=== PATIENT | male | born 1980 | race Hispanic/Latino ===

== ENCOUNTER 2024-11-16 16:40 | Emergency (ER) | payer BC, OTHER ==
[~2024-11-16] VITALS: Ht 172.7 cm; Wt 106.6 kg
--- NOTE | 2024-11-16 17:01 | ERN ---
ED Note History of Present Illness Stated Complaint: BLOOD URINE Chief Complaint: Blood in Urine: Time Seen by MD: 16:57 Time Seen by Midlevel: 16:57 Dictation: Mr. Mcrae 44-year-old male with history of obesity, anxiety, and kidney stones. He states that he has been experiencing intermittent sharp right flank pain for the past two weeks. He states that two days ago it got worse. This morning he states he noted his urine was clear/yellow but when he urinated this afternoon it was dark brown. He states his flank pain increased and he became nauseated with anxiety prompting him to come to the hospital. He states that he has had kidney stones since he was a child with last episode three years ago. He states he was seen a urologist in [place] but they have since left. He denies fever, chills, shortness of breath, cough, chest pain, palpitations, edema, abdominal pain, vomiting, hematemesis, constipation, diarrhea, melena, hematochezia, headache, dizziness, or focal weakness/paresthesia Allergies: Coded Allergies: No Known Drug Allergies (Unverified Allergy, Unknown, 11/16/24) Past Medical History Past Medical History: Anxiety, Diverticulitis, Kidney Stone Surgical History: Other Surgical History Other: abdominal lap PSYCH History: anxiety Social History: Negative, Lives with family RN Note Reviewed/Agreed w/PFSH: Yes Review of System Dictation REVIEW OF SYSTEMS: CONSTITUTIONAL: Patient denies fevers, chills, sweats and weight changes. EYES: Patient denies any visual symptoms. EARS, NOSE, AND THROAT: No difficulties with hearing. No symptoms of rhinitis or sore throat. CARDIOVASCULAR: Patient denies chest pains, palpitations, orthopnea and paroxysmal nocturnal dyspnea. States "I always have high blood pressure readings whenever I go to the doctor or the hospital" RESPIRATORY: No dyspnea on exertion, no wheezing or cough. GI: No vomiting, diarrhea, constipation, abdominal pain, hematochezia or melena. Reports nausea. : No urinary hesitancy or dribbling. No nocturia or urinary frequency. No abnormal urethral discharge. Reports sharp intermittent right flank pain x2 weeks; worse over the past 48 hours. This afternoon noted urine dark c olored/bloody. He reports history of kidney stones since childhood. Reports last stone was approximately 3 years ago. MUSCULOSKELETAL: No myalgias or arthralgias. NEUROLOGIC: No chronic headaches, no seizures. Patient denies numbness, tingling or weakness. PSYCHIATRIC: Patient denies problems with mood disturbance. Reports increased anxiety. ENDOCRINE: No excessive urination or excessive thirst. States he has had elevated blood glucose readings in the past. DERMATOLOGIC: Patient denies any rashes or skin changes. Initial Vital Sign VS Vital Signs Date Time Temp Pulse Resp B/P (MAP) Pulse Ox O2 Delivery O2 Flow Rate FiO2 11/16/24 16:44 96 18 250/142 97 Room Air 5.0 11/16/24 16:46 21 11/16/24 17:01 99.0 Physical Exam Dictation Vital signs: Reviewed. Afebrile Constitutional: Anxious, pacing Head/Face: Normocephalic, atraumatic. Eyes: Periorbital areas with no swelling, redness, or edema. Lids and lashes are normal. Conjunctival injection is absent. Sclera anicteric. Pupils equal, round, reactive to light. ENT: Pinnas intact and no signs of trauma or erythema. Ear canals clear and no discharge. TMs no erythema. No nasal discharge or bleeding noted. Oropharynx with no exudate, redness, swelling, masses, exudates, or evidence of obstruction. Uvula midline. Mucous membranes moist. Neck: Trachea midline, no masses palpated, and no cervical lymphadenopathy. No swelling. Supple, full range of motion. Chest/Axilla: No tenderness, no crepitus, no paradoxical movement, no retractions. Cardiovascular: Regular rate, regular rhythm, no murmur, no gallops. Symmetric pulses. No peripheral edema. Hypertensive. Respiratory: Respirations even and unlabored. Lung sounds clear; no wheezes, rales or rhonchi. Room air SpO2 98% Gastrointestinal: Obese. No distention is appreciated. Bowel sounds are normal. No mass or organomegaly . There is no tenderness. No rebound. No rigidity. No voluntary or involuntary guarding. No Babin's sign. : Urine is brown in color. Negative CVA tenderness bilaterally. Neurological: Normal speech, gross motor function intact, gross sensory function intact. No focal weakness/Paresthesia. Musculoskeletal/Extremities: All extremities have full range of motion, no pain or tenderness on palpation. Symmetric pulses. Integumentary: Intact. Skin is normal color, warm and dry. Cap refill less than 3 seconds. Results (Laboratory/Radiology) Laboratory/Radiology Laboratory Tests Test 11/16/24 17:10 11/16/24 17:19 White Blood Count 13.9 K/uL (4.8-10.8) H Red Blood Count 5.44 MIL/uL (4.50-6.20) Hemoglobin 16.0 g/dL (14.0-18.0) Hematocrit 45.0 % (42-54) Mean Corpuscular Volume 82.7 fL (79-99) Mean Corpuscular Hemoglobin 29.4 pg (27.0-33.0) Mean Corpuscular Hemoglobin Concent 35.6 g/dL (32.0-36.0) Red Cell Distribution Width 12.9 % (11.0-15.5) Platelet Count 340 K/uL (130-400) Mean Platelet Volume 10.4 fL (7.5-10.5) Immature Granulocyte % (Auto) 0.5 % (0-1) Neutrophils (%) (Auto) 73.9 % (40.0-77.0) Lymphocytes (%) (Auto) 18.9 % (21.0-51.0) L Monocytes (%) (Auto) 5.7 % (3.0-13.0) Eosinophils (%) (Auto) 0.6 % (0.0-8.0) Basophils (%) (Auto) 0.4 % (0.0-5.0) Neutrophils # (Auto) 10.3 K/uL (1.8-7.7) H Lymphocytes # (Auto) 2.6 K/uL (1.0-4.8) Monocytes # (Auto) 0.8 K/uL (0.1-1.0) Eosinophils # (Auto) 0.08 K/uL (0.00-0.70) Basophils # (Auto) 0.06 K/uL (0.00-0.20) Absolute Immature Granulocyte (auto 0.07 K/uL (0-1) Nucleated Red Blood Cells 0.0 % (0.0-0.19) Sodium Level 138 mmol/L (136-145) Potassium Level 3.2 mmol/L (3.5-5.1) L Chloride Level 100 mmol/L (101-111) L Carbon Dioxide Level 28 mmol/L (21-32) Blood Urea Nitrogen 11 mg/dL (7-18) Creatinine 1.2 mg/dL (0.5-1.3) Glomerular Filtration Rate Calc 76 mL/min (>90) Random Glucose 164 mg/dL (70-105) H Total Calcium 9.1 mg/dL (8.5-10.1) Urine Color LIGHT-ORANGE (YELLOW) Urine Appearance TURBID (CLEAR) Urine pH 5.5 (5.0-8.0) Urine Specific [place] 1.022 (1.001-1.031) Urine Protein 100 mg/dL (NEGATIVE) H Urine Glucose (UA) NEGATIVE mg/dL (NEGATIVE) Urine Ketones NEGATIVE mg/dL (NEGATIVE) Urine Occult Blood LARGE (NEGATIVE) H Urine Nitrate NEGATIVE (NEGATIVE) Urine Bilirubin NEGATIVE mg/dL (NEGATIVE) Urine Urobilinogen 0.2 mg/dL (0.2-1.0) Urine Leukocyte Esterase 25 Anjelica/uL (NEGATIVE) H Urine RBC >100 /HPF (0-1) H Urine WBC 6-10 /HPF (0-1) H Urine Squamous Epithelial Cells RARE /HPF (0-2) Urine Other Crystals (Auto) 17 /HPF (None Seen) Urine Bacteria RARE /HPF (None Seen) Urine Yeast FEW /HPF (None Seen) Urine Opiates Screen NEGATIVE (NEGATIVE) Urine Barbiturates Screen NEGATIVE (NEGATIVE) Urine Phencyclidine Screen NEGATIVE (NEGATIVE) Urine Amphetamines Screen NEGATIVE (NEGATIVE) Urine Benzodiazepines Screen NEGATIVE (NEGATIVE) Urine Cocaine Screen NEGATIVE (NEGATIVE) Urine Marijuana (THC) Screen NEGATIVE (NEGATIVE) Labs Reviewed?: Yes CT Scan Comment: PATIENT: DAFNE MCRAE III MR#: [id number] : 1980 SEX: M AGE: 44 LOCATION: [facility] ORDER 22 STATUS: REG REPORT#: [id number] SERVICE 172 REASON: RIGHT FLANK PAIN. HX OF KIDENY STONES. ORDERING PHYSICIAN: KIM LOPEZ NP PROCEDURE: ABD PEL WO - CT ABDOMEN/PELVIS W/O CONTRAST EXAM: CT Abdomen and Pelvis Without IV Contrast CLINICAL HISTORY: Patient presents with right flank pain and history of kidney stones. TECHNIQUE: Axial computed tomography images of the abdomen and pelvis without intravenous contrast. CONTRAST: No IV contrast. COMPARISON: CT abdomen and pelvis dated October 06, 2016. FINDINGS: LUNG BASES: The lung bases are clear. No pleural effusions. LIVER: The liver is enlarged, measuring approximately 18 cm in craniocaudal span. GALLBLADDER AND BILE DUCTS: The gallbladder is within normal limits. No radiopaque gallstones. No biliary ductal dilatation. PANCREAS: Unremarkable. SPLEEN: Unremarkable. ADRENAL GLANDS: Unremarkable. KIDNEYS, URETERS, AND BLADDER: There is a 0.8 cm calculus in the mid calyx of the left kidney. Two calculi are present in the lower calyx of the left kidney, the larger measuring 0.6 cm. New right proximal ureteric calculus measuring 0.7 cm with upstream mild hydroureteronephrosis and minimal periureteric fat stranding. The urinary bladder is incompletely distended, limiting evaluation for possible wall thickening. Mild cystitis cannot be excluded. STOMACH AND BOWEL: Unremarkable stomach and small bowel. Colonic diverticulosis without diverticulitis. No bowel obstruction. No findings suggesting enteritis or colitis. APPENDIX: No evidence of acute appendicitis. PERITONEUM: No free fluid. No free air. LYMPH NODES: No lymphadenopathy. REPRODUCTIVE: The prostate gland and seminal vesicles are normal. VASCULATURE: No evidence of abdominal aortic aneurysm. BONES: No aggressive osseous lesion. No acute osseous pathology. IMPRESSION: Right proximal ureteric calculus measuring 0.7 cm with mild upstream hydroureteronephrosis and minimal periureteric fat stranding. Nonobstructing left renal calculi, including a 0.8 cm mid calyceal calculus and a 0.6 cm lower calyceal calculus. Hepatomegaly. Colonic diverticulosis without diverticulitis. Urinary bladder incompletely distended, limiting evaluation for wall thickening; mild cystitis cannot be excluded. /[facility] DICTATED BY: ANY CAMPOS Jr., MD DATE: 11/16/241956 ELECTRONICALLY SIGNED BY: ANY CAMPOS Jr., MD DATE: 11/16/241956 ED Course ED Course Orders Procedure Category Date Status Time Urinalysis Profile LAB 11/16/24 Complete 16:58 Cbc With Differential LAB 11/16/24 Complete 16:58 Basic Metabolic Panel LAB 11/16/24 Complete 16:58 0.9%Nacl 1000ml (Ns PHA 11/16/24 In Process 1000ml) 17:30 Ct Abdomen/Pelvis W/O CT 11/16/24 Resulted Contrast 17:21 Culture Urine MONICA 11/16/24 In Process 17:35 Ketorolac PHA 11/16/24 In Process Tromethamine 15mg/Ml 18:00 Ondansetron 4mg Inj PHA 11/16/24 In Process (Zofran 4mg Inj) 18:00 Diazepam 5 Mg/Ml 2 Ml PHA 11/16/24 In Process Syg (Valium 5 Mg/M 19:00 Diazepam 5 Mg/Ml 2 Ml PHA 11/16/24 Complete Syg (Valium 5 Mg/M 18:42 Drug Screen Urine LAB 11/16/24 Complete 19:04 Potassium Bicarb/Cit PHA 11/16/24 In Process Ac 25meq (K-Lyte Ta 19:30 Ceftriaxone 1g Vial PHA 11/16/24 In Process (Rocephine 1g Inj) 19:30 Tamsulosin Hcl PHA 11/16/24 In Process (Flomax) 19:30 Clonidine Hcl 0.2 Mg PHA 11/16/24 In Process Tablet (Catapres 0. 20:30 Current Medications Medications (Trade) Dose Ordered Sig/Edinson Route PRN Reason Start Time Stop Time Status Last Admin Dose Admin Ceftriaxone Sodium (ROCEphine 1G INJ) 1 gm ONCE IVPB 11/16/24 19:30 11/16/24 23:59 11/16/24 20:06 Clonidine HCl (CATApres 0.2 MG TAB) 0.2 mg ONCE PO 11/16/24 20:30 11/16/24 23:59 Diazepam (VALium 5 MG/ML 2 ML SYG) 5 mg ONCE IVP 11/16/24 19:00 11/16/24 23:00 11/16/24 18:42 Diazepam (VALium 5 MG/ML 2 ML SYG) 10 mg STK-MED ONCE .ROUTE 11/16/24 18:42 11/16/24 18:42 DC Ketorolac Tromethamine (toRADol) 15 mg ONCE IV 11/16/24 18:00 11/16/24 22:00 11/16/24 18:20 Ondansetron HCl (zoFRAN 4MG INJ) 4 mg ONCE IVP 11/16/24 18:00 11/16/24 22:00 11/16/24 18:20 Potassium Bicarbonate (K-Lyte Tablet Eff 25 Meq Tablet.eff) 50 meq ONCE PO 11/16/24 19:30 11/16/24 23:59 11/16/24 20:05 Sodium Chloride 1,000 ml @ 0 mls/hr Q0M IV 11/16/24 17:30 11/17/24 17:29 11/16/24 17:41 Tamsulosin HCl (FloMAX) 0.4 mg ONCE PO 11/16/24 19:30 11/16/24 23:59 11/16/24 20:08 Vital Signs Date Time Temp Pulse Resp B/P (MAP) Pulse Ox O2 Delivery O2 Flow Rate FiO2 11/16/24 18:27 237/138 Room Air* 0 21 11/16/24 17:01 99.0 112 14 201/130 98 Room Air* 0 21 11/16/24 16:46 96 18 250/142 97 Room Air* 0 21 11/16/24 16:44 96 18 250/142 97 Room Air 5.0 Patient presents with right flank pain intermittently for the past two weeks; worse over the past 48 hours. This afternoon his urine was dark brown with hematuria. He states he has had stones since he was a child he reports nausea without emesis. Laboratory findings as noted below. WBCs 13.9, K3.2, Cl 100, and glucose 164. UA turbid/orange; + protein, blood, leukocyte esterase, and rare bacteria. UCX pending. CT scan of the abdomen/pelvis revealed right proximal ureteral calculus measuring 7 mm with mild upstream hydroureteronephro sis and small becca redirect fat stranding. There was nonobstructing left renal calculi to include 8 mm mid calyceal calculus and a 6 mm lower calcium calculus. Also noted, diverticulosis without diverticulitis and possible mild cystitis. Dr. Yarbrough was paged; no return call. Patient remains hypertensive and anxious which he states always happens whenever he is at the doctor's office or at the hospital. He states he has been told by his PCP that he should start and anxiety medication as well as an antihypertensive agent. He was given doses Rocephin, KCl, Valium, Flomax, and NS 1000 mL I have no source. Dr Yarbrough was paged but no response. Patient states "I have passed larger stones than that in the past" He states that he does not want to stay in the hospital and wishes to sign out AMA. Is patient of the risks of leaving against medical advice to include worsening infection, kidney damage or loss of kidney function, sepsis, shock or . Patient states he understands and would still like to go home. He states that his will monitor his blood pressure readings and he will continue to take Flomax and antibiotic as prescribed. Medical Decision Making MDM MDM: Differential diagnosis: Kidney stone, UTI/infected stone, hematuria, electrolyte derangement Rationale: Tests considered and ordered secondary to shared decision making incl ude: labs, ECG and radiology Previous outside records reviewed: Old ER visits. Risk of complication and/or morbidity or mortality of patient management: None Medications-Per medication reconciliation Need for hospitalization: Patient does meet criteria for hospitalization. Need for emergency major/minor surgery: No There are no social concerns with this patient. Prescription drug management: Patient signed out against medical advice. He was still prescribed Flomax, Levaquin, and Zofran. Prescriptions will include symptomatic care Patient's prior external medical records from other ER visits were reviewed by me as indicated. Prior testing and results from previous visits were reviewed. Prior tests were taken into account with medical decision making and resource utilization, independent historian/historians were used to obtain complete medical history. I independently interpreted the test that were performed, results were reviewed by me and considered findings on radiology if ordered. Medical management and examination interpretation discussions were had by me with other qualified healthcare professionals as indicated for the patient's care. DX & DISP Disposition: AMA Departure Impression: Primary Impression: Urinary tract obstruction by kidney stone Additional Impressions: Hydroureteronephrosis, Hypertensive urgency, Anxiety reaction, Hypokalemia, Cystitis, Blood glucose elevated Condition: Stable Scripts Levofloxacin (Levofloxacin) 750 Mg Tablet 1 TAB PO DAILY for 7 Days, #7 TAB 0 Refills Prov: KIM LOPEZ NP 11/16/24 Ondansetron (Ondansetron Odt) 4 Mg Tab.rapdis 4 MG PO Q6HPRN PRN for nausea, #15 TAB 0 Refills Prov: KIM LOPEZ QA TEST ANALYST 11/16/24 Tamsulosin HCl (Flomax) 0.4 Mg Cap.er.24h 1 CAP PO DAILY for 14 Days, #14 CAP 0 Refills Prov: KIM LOPEZ NP 11/16/24 Additional Instructions: You have an infected kidney stone this is a serious condition and can lead to life-threatening infection if not treated in the hospital. The stone can block urine flow, trapping infection inside your kidney. Without IV antibiotics, bacteria can spread into your bloodstream which can cause organ failure and . Risks of leaving now include worsening infection, kidney damage or loss of kidney function, sepsis, shock, or . Continue antibiotics with Levaquin 750 mg daily. Take Flomax daily. May take Zofran ODT every 6 hours as needed for nausea. Drink plenty of fluids. Rest and avoid strenuous activity. [id number] Tylenol as needed for discomfort. Strain all urine if possible to catch the stone for analysis. You will need to follow up with the urologist in the next 24-48 hours. Follow up with your PCP to discuss anxiety response and elevated blood pressure readings. Keep a log of your blood pressure is at home to share with your PCP. Oral antibiotics and home care may not be enough to treat this problem. You are leaving the hospital against medical advice which increases your risk of serious complications. I have provided you with urologist on-call phone number/address. Call 1st thing Monday morning to establish care and follow up. You will need to return to the emergency department if you have worsening of symptoms such as fever greater than 100.4, chills, rapid heartbeat, dizziness, confusion, trouble urinating or no urine output, severe back/flank pain, abdominal pain, nausea, or vomiting that prevents you from keeping fluids down. Referrals: SELF,REFERRAL (PCP) MAT YARBROUGH MD Time of Disposition: 21:24 KIM LOPEZ NP Nov 16, 2024 17:01
[2024-11-16 17:16] LABS: IMMATURE GRANULOCYTE ABSOLUTE 0.07 K/uL (0-1); NUCLEATED RED BLOOD CELLS 0.0 % (0.0-0.19); PLATELET COUNT (AUTO) 340 K/uL (130-400); RED BLOOD CELL COUNT(AUTO) 5.44 MIL/uL (4.50-6.20); RED CELL DISTRIBUTION WIDTH 12.9 % (11.0-15.5); WHITE BLOOD COUNT (AUTO) 13.9 K/uL (4.8-10.8)
[2024-11-16 17:23] LABS: CREATININE 1.2 mg/dL (0.5-1.3); GLOMERULAR FILTR. RATE CALC 76.0 mL/min (>90); GLUCOSE,RANDOM 164.0 mg/dL (70-105); SODIUM SERUM 138.0 mmol/L (136-145); UREA NITROGEN, BLOOD 11.0 mg/dL (7-18)
[2024-11-16 17:31] LABS: APPEARANCE,URINE TURBID (CLEAR); GLUCOSE, URINE (UA) NEGATIVE (NEGATIVE); LEUKOCYTE ESTERASE ,URINE 25 Leu/uL (NEGATIVE); NITRATE,URINE NEGATIVE (NEGATIVE); OCCULT BLOOD,URINE LARGE (NEGATIVE)
[2024-11-16 17:32] LABS: ADD UA MICROSCOPIC YES
[2024-11-16 17:33] LABS: SQUAMOUS EPITHELIAL CELL,UR RARE /HPF (0-2); UNCLASSIFIED CRYSTAL 17 /HPF (None Seen); YEAST,URINE BUDDING FEW /HPF (None Seen)
[2024-11-16] MEDS: 0.9%NACL 1000ML 1,000 ML IV SCH (17:41)
--- NOTE | 2024-11-16 18:28 | NUR ---
VOICES ANXIETY. NOTED HIGH BLOOD PRESSURE. REPORTED TO PROVIDER.
--- NOTE | 2024-11-16 18:57 | HMCIMG ---
EXAM: CT Abdomen and Pelvis Without IV Contrast CLINICAL HISTORY: Patient presents with right flank pain and history of kidney stones. TECHNIQUE: Axial computed tomography images of the abdomen and pelvis without intravenous contrast. CONTRAST: No IV contrast. COMPARISON: CT abdomen and pelvis dated October 06, 2016. FINDINGS: LUNG BASES: The lung bases are clear. No pleural effusions. LIVER: The liver is enlarged, measuring approximately 18 cm in craniocaudal span. GALLBLADDER AND BILE DUCTS: The gallbladder is within normal limits. No radiopaque gallstones. No biliary ductal dilatation. PANCREAS: Unremarkable. SPLEEN: Unremarkable. ADRENAL GLANDS: Unremarkable. KIDNEYS, URETERS, AND BLADDER: There is a 0.8 cm calculus in the mid calyx of the left kidney. Two calculi are present in the lower calyx of the left kidney, the larger measuring 0.6 cm. New right proximal ureteric calculus measuring 0.7 cm with upstream mild hydroureteronephrosis and minimal periureteric fat stranding. The urinary bladder is incompletely distended, limiting evaluation for possible wall thickening. Mild cystitis cannot be excluded. STOMACH AND BOWEL: Unremarkable stomach and small bowel. Colonic diverticulosis without diverticulitis. No bowel obstruction. No findings suggesting enteritis or colitis. APPENDIX: No evidence of acute appendicitis. PERITONEUM: No free fluid. No free air. LYMPH NODES: No lymphadenopathy. REPRODUCTIVE: The prostate gland and seminal vesicles are normal. VASCULATURE: No evidence of abdominal aortic aneurysm. BONES: No aggressive osseous lesion. No acute osseous pathology. IMPRESSION: Right proximal ureteric calculus measuring 0.7 cm with mild upstream hydroureteronephrosis and minimal periureteric fat stranding. Nonobstructing left renal calculi, including a 0.8 cm mid calyceal calculus and a 0.6 cm lower calyceal calculus. Hepatomegaly. Colonic diverticulosis without diverticulitis. Urinary bladder incompletely distended, limiting evaluation for wall thickening; mild cystitis cannot be excluded. /[employer]
[2024-11-16 19:41] LABS: AMPHET/METH SCREEN,URINE NEGATIVE (NEGATIVE); BARBITURATE SCREEN, URINE NEGATIVE (NEGATIVE); CANNABINOID SCREEN,URINE NEGATIVE (NEGATIVE); COCAINE SCREEN,URINE NEGATIVE (NEGATIVE)
[2024-11-16] MEDS ORDERED: LEVO750T90 PO (21:11)
[2024-11-16] MEDS ORDERED: ONDA-243 PO (21:11)
[2024-11-16] MEDS ORDERED: TAMS-55 PO (21:11)
[2024-11-16 21:57] VITALS: BP 178/114; PULSE 100; RESP 17; TEMP 98.4; O2SAT 99
== END 2024-11-16 22:10 | disposition left against medical advice (07) ==
LOC: EDH 16:40
DX: N13.9 Obstructive and reflux uropathy, unspecified (principal); N13.30 Unspecified hydronephrosis; I16.0 Hypertensive urgency; F41.1 Generalized anxiety disorder; E87.6 Hypokalemia; N30.90 Cystitis, unspecified without hematuria; R73.9 Hyperglycemia, unspecified
CPT/HCPCS: 99284; 74176; 96365; 96375; 96361; 80048; 80305; 85025; 87086; 81001; 36415; J1885; J3360; J0696; J2405